=== PATIENT | male | born 1990 | race Caucasian/White ===

== ENCOUNTER 2016-08-22 18:57 | Emergency (ER) | payer MEDICAID, SELFPAY ==
[~2016-08-22] VITALS: Ht 185.4 cm; Wt 114.6 kg
[2016-08-22 18:58] VITALS: BP 119/83
== END 2016-08-22 19:48 | disposition home or self-care (01) ==
LOC: ED 19:42
DX: S43.004A Unspecified dislocation of right shoulder joint, initial encounter (principal); W18.39XA Other fall on same level, initial encounter; Y93.01 Activity, walking, marching and hiking; Y92.410 Unspecified street and highway as the place of occurrence of the external cause; Y99.8 Other external cause status; Z87.891 Personal history of nicotine dependence

== ENCOUNTER 2017-02-15 13:04 | Inpatient (IN) | payer MEDICAID ==
[~2017-02-15] VITALS: Ht 185.4 cm; Wt 97.1 kg
[2017-02-15] MEDS ORDERED: SODIUM CHLORIDE FLUSH 10ML SYR IVF ONE (14:00)
[2017-02-15 14:11] LABS: HEMATOCRIT 52.5 % (39.2-51.8)
[2017-02-15 14:25] LABS: ASPARTATE AMINO TRANSFERASE 20 U/L (15-37); BLOOD UREA NITROGEN 11 mg/dL (7-18); C-REACTIVE PROTEIN, QUANT 0.26 mg/dL (0.02-0.49)
[2017-02-15] MEDS ORDERED: GADOBUTROL 10 MMOL/10 ML PFS ONE ×2 (15:51→17:37)
[2017-02-15] MEDS ORDERED: NS + 20MEQ KCL 1,000 ML IV SCH (19:30)
[2017-02-15] MEDS ORDERED: DOCUSATE 100 MG CAPSULE PO PRN (19:30)
[2017-02-15] MEDS ORDERED: ACETAMINOPHEN 325 MG TABLET PO PRN (19:30)
[2017-02-15] MEDS ORDERED: POLYETHYLENE GLYCOL 17 GM PACKET PO PRN (19:30)
[2017-02-15] MEDS ORDERED: HYDROcodone/APAP 5/325 TABLET ONE (20:00)
[2017-02-15] MEDS: HYDROcodone/APAP 5/325 TABLET PO PRN (20:04)
[2017-02-15 20:16] LABS: HIV 1&2 ANTIBODY SCREEN Nonreactive (Nonreactive); HIV-1 p24 ANTIGEN Nonreactive (Nonreactive)
[2017-02-15] MEDS ORDERED: ONDANSETRON 2MG/ML, 2ML ONE (20:59)
[2017-02-15] MEDS: AMOXICILLIN 500 MG CAPSULE PO SCH (21:00)
[2017-02-15] MEDS: ONDANSETRON 2MG/ML, 2ML IVPush PRN (21:02)
[2017-02-16] MEDS: CALCIUM CARBONATE 500 MG TAB.CHEW PO PRN ×2 (00:09→16:18)
[2017-02-16 01:33] VITALS: BP 129/85
[2017-02-16 01:52] VITALS: BP 149/84
[2017-02-16] MEDS: HYDROcodone/APAP 5/325 TABLET PO PRN ×2 (07:38→14:48)
[2017-02-16 07:57] VITALS: BP 114/74
[2017-02-16 08:07] LABS: IS PT STATUS REG ER OR PRE ER? NO
[2017-02-16] MEDS: SENNA/DOCUSATE TABLET PO SCH (09:00)
[2017-02-16] MEDS: AMOXICILLIN 500 MG CAPSULE PO SCH ×3 (10:09→21:20)
[2017-02-16 14:02] VITALS: BP 120/75
[2017-02-16 19:14] VITALS: BP 119/73
[2017-02-17 01:06] VITALS: BP 128/69
[2017-02-17] MEDS: ONDANSETRON 2MG/ML, 2ML IVPush PRN (07:38)
[2017-02-17] MEDS: SENNA/DOCUSATE TABLET PO SCH (07:38)
[2017-02-17 08:10] VITALS: BP 119/78
[2017-02-17] MEDS ORDERED: ALBUTEROL SULFATE 2.5 MG/3 ML ONE (08:16)
[2017-02-17] MEDS: HYDROcodone/APAP 5/325 TABLET PO PRN ×2 (09:11→20:10)
[2017-02-17 14:14] VITALS: BP 132/70
[2017-02-17 19:57] VITALS: BP 122/72
[2017-02-17] MEDS: NORTRIPTYLINE 25 MG CAPSULE PO SCH (20:37)
[2017-02-18 02:10] VITALS: BP 124/76
[2017-02-18 05:59] LABS: HEMATOCRIT 46.7 % (39.2-51.8); HEMOGLOBIN 15.8 g/dL (13.7-18.0); WHITE BLOOD COUNT 17.3 x10^3/uL (3.4-10)
[2017-02-18 06:24] LABS: BLOOD UREA NITROGEN 13 mg/dL (7-18)
[2017-02-18] MEDS ORDERED: SENNA/DOCUSATE TABLET PO PRN (07:00)
[2017-02-18 07:35] VITALS: BP 115/65
[2017-02-18] MEDS: OMEPRAZOLE 20 MG CAPSULE.DR PO SCH (09:00)
[2017-02-18] MEDS: HYDROcodone/APAP 5/325 TABLET PO PRN (12:46)
[2017-02-18 13:37] VITALS: BP 120/67
[2017-02-18 15:57] LABS: ANA SCREEN POSITIVE (Negative)
[2017-02-18 16:07] LABS: ARSENIC BLOOD 6 ug/L (2-23); LEAD BLOOD 2 ug/dL (0-19); MERCURY BLOOD None Detected ug/L (0.0-14.9)
[2017-02-18 18:50] VITALS: BP 125/73
[2017-02-18] MEDS: CALCIUM CARBONATE 500 MG TAB.CHEW PO PRN (19:51)
[2017-02-18] MEDS: NORTRIPTYLINE 25 MG CAPSULE PO SCH (19:51)
[2017-02-18] MEDS: HEPARIN 5,000 UNITS/ML, 1ML SQ SCH (19:53)
[2017-02-19 02:40] VITALS: BP 136/81
[2017-02-19] MEDS: HEPARIN 5,000 UNITS/ML, 1ML SQ SCH ×3 (04:53→21:47)
[2017-02-19 07:33] VITALS: BP 125/75
[2017-02-19] MEDS: HYDROcodone/APAP 5/325 TABLET PO PRN ×3 (09:45→21:47)
[2017-02-19] MEDS: OMEPRAZOLE 20 MG CAPSULE.DR PO SCH (09:46)
[2017-02-19 12:20] VITALS: BP 120/74
[2017-02-19] MEDS: GABAPENTIN 100 MG CAPSULE PO SCH ×2 (18:46→21:46)
[2017-02-19 19:25] VITALS: BP 123/75
[2017-02-19] MEDS: AMOXICILLIN/CLAV 875-125MG TABLET PO SCH (21:46)
[2017-02-19] MEDS: NORTRIPTYLINE 25 MG CAPSULE PO SCH (21:46)
[2017-02-20 01:55] VITALS: BP 123/76
[2017-02-20] MEDS: HEPARIN 5,000 UNITS/ML, 1ML SQ SCH ×3 (05:18→21:38)
[2017-02-20 07:37] VITALS: BP 134/80
[2017-02-20] MEDS: GABAPENTIN 100 MG CAPSULE PO SCH ×3 (10:59→21:38)
[2017-02-20] MEDS: AMOXICILLIN/CLAV 875-125MG TABLET PO SCH ×2 (10:59→21:38)
[2017-02-20] MEDS: OMEPRAZOLE 20 MG CAPSULE.DR PO SCH (10:59)
[2017-02-20 12:29] VITALS: BP 149/79
[2017-02-20] MEDS: HYDROcodone/APAP 5/325 TABLET PO PRN ×2 (13:52→19:31)
[2017-02-20] MEDS ORDERED: ONDANSETRON 2MG/ML, 2ML IVPush PRN (20:00)
[2017-02-20] MEDS ORDERED: ACETAMINOPHEN 325 MG TABLET PO PRN (20:00)
[2017-02-20] MEDS ORDERED: DOCUSATE 100 MG CAPSULE PO PRN (20:00)
[2017-02-20] MEDS ORDERED: POLYETHYLENE GLYCOL 17 GM PACKET PO PRN (20:00)
[2017-02-20 20:28] VITALS: BP 125/84
[2017-02-20] MEDS: NORTRIPTYLINE 25 MG CAPSULE PO SCH (21:38)
[2017-02-21 04:16] VITALS: BP 130/83
[2017-02-21] MEDS: HEPARIN 5,000 UNITS/ML, 1ML SQ SCH (05:00)
[2017-02-21 07:58] VITALS: BP 123/81
[2017-02-21] MEDS: OMEPRAZOLE 20 MG CAPSULE.DR PO SCH (08:11)
[2017-02-21] MEDS: AMOXICILLIN/CLAV 875-125MG TABLET PO SCH (08:11)
[2017-02-21] MEDS: HYDROcodone/APAP 5/325 TABLET PO PRN ×2 (08:11→14:25)
[2017-02-21] MEDS: GABAPENTIN 100 MG CAPSULE PO SCH (08:13)
[2017-02-21 11:13] LABS: HEMATOCRIT 48.1 % (39.2-51.8); HEMOGLOBIN 16.7 g/dL (13.7-18.0); WHITE BLOOD COUNT 15.7 x10^3/uL (3.4-10)
[2017-02-21 11:23] LABS: ASPARTATE AMINO TRANSFERASE 5 U/L (15-37); BLOOD UREA NITROGEN 15 mg/dL (7-18)
[2017-02-21] MEDS ORDERED: NORT25CA PO (12:56)
[2017-02-21] MEDS ORDERED: GABA-826 PO (12:56)
[2017-02-21] MEDS ORDERED: PRED20TA PO (12:56)
[2017-02-22 14:08] LABS: COMPLEMENT C3 124 mg/dL (82-167); COMPLEMENT C4 25 mg/dL (14-44); INTERMYOFIBRILLAR AB Negative (Neg:<1:20); MITOCHONDRIAL (M2) AB 17.5 Units (0.0-20.0); PARIETAL CELL AB 3.2 Units (0.0-20.0); RA LATEX TURBIDITY <10.0 IU/mL (0.0-13.9); SARCOLEMMA AB Negative (Neg:<1:20); STRIATION AB Negative (Neg:<1:40); THYROID PEROXIDASE (TPO) AB 21 IU/mL (0-34)
[2017-02-24 15:07] LABS: ALBUMIN CSF 22 mg/dL (11-48); ALBUMIN SERUM 4.7 g/dL (3.5-5.5); CSF IGG INDEX 0.6 (0.0-0.7); CSF/SERUM ALBUMIN INDEX 5 (0-8); IGG SERUM 967 mg/dL (700-1600); IGG/ALBUMIN RATIO CSF 0.12 (0.00-0.25); MYELIN BASIC PROTEIN CSF 46.6 ng/mL (0.0-1.2)
== END 2017-02-21 15:44 | disposition home or self-care (01) | DRG 59 ==
LOC: ED 13:51 → SUATTDRO 19:19 → EDIP 19:30 → 3NE 22:51
PROVIDERS: ADMIT Family Medicine; ATTEND Family Medicine
DX: G35 Multiple sclerosis (principal); F19.20 Other psychoactive substance dependence, uncomplicated; G61.0 Guillain-Barre syndrome; E11.40 Type 2 diabetes mellitus with diabetic neuropathy, unspecified; M32.9 Systemic lupus erythematosus, unspecified; D72.829 Elevated white blood cell count, unspecified; F10.21 Alcohol dependence, in remission; F41.8 Other specified anxiety disorders; Z77.011 Contact with and (suspected) exposure to lead; Z79.899 Other long term (current) drug therapy; Z87.891 Personal history of nicotine dependence
CPT/HCPCS: 36415; 62270; 70553; 72156; 72157; 72158; 80048; 80053; 80076; 82040; 82042; 82175; 82300; 82607; 82746; 82784; 83516; 83655; 83735; 83825; 83873; 84443; 84484; 85025; 85651; 86038; 86039; 86140; 86160; 86225; 86235; 86255; 86256; 86376; 86431; 86592; 86645; 86695; 86696; 86703; 86705; 86762; 86777; 86778; 86803; 87340; 87798; 87899; 93005; 94060; 96374; A9585; J1644; J2405; J2930; J3480; G0435; J7512